=== PATIENT | female | born 1990 | race Caucasian/White ===

== ENCOUNTER → 2017-11-29 07:33 | Observation (INO) ==
[2017-11-29 04:37] LABS: Basophils % 0.3 %; Eosinophils # 0.2 K/mcL (0.0-0.6); Eosinophils % 1.4 %; Hematocrit 30.3 % (35.3-44.9); Hemoglobin 9.8 g/dL (11.5-15.4); Immature Granulocytes % 1.5 % (0-4); Lymphocytes # 2.1 K/mcL (0.6-4.6); Lymphocytes % 19.5 %; Mean Corpuscular HGB Conc 32.3 g/dL (31.6-35.5); Mean Corpuscular Hemoglobin 25.1 pg (28.0-33.3); Mean Corpuscular Volume 77.7 fL (83.0-100.0); Mean Platelet Volume 10.6 fL (9.4-12.4); Monocytes # 0.6 K/mcL (0.0-1.3); Monocytes % 5.4 %; Neutrophils # 7.9 K/mcL (1.6-8.9); Platelet Count 187 K/mcL (140-400); Red Cell Distribution Width 13.4 % (11.5-14.5); Segmented Neutrophils % 71.9 %
[2017-11-29 05:12] LABS: Alanine Aminotransferase 8 Units/L (7-52); Aspartate Amino Transferase 14 Units/L (13-39); BUN/Creatinine Ratio 20 (6-26); Blood Urea Nitrogen 8 mg/dL (6-20); Lactate Dehydrogenase 142 Units/L (140-271); eGFR For African Americans > 60 (> 60); eGFR For Non-African Americans > 60 (> 60)
--- NOTE | 2017-11-29 05:25 | OB/GYN History & Physical ---
Date of Encounter: 11/29/17 Time of Encounter: 05:10 Assessment and Plan (1) 38 weeks gestation of Current visit: Yes Status: Acute (2) Antepartum bleeding, third trimester Current visit: Yes Status: Acute Slight brown spotting noted on RN exam, No change on serial cervical exams PIH labs negative and normotensive at this time Discharge home with when to call provider or return to triage precautions. Keep OB appointment today with provider. (3) Lower extremity edema Current visit: Yes Status: Acute (4) Gestational diabetes Current visit: Yes Status: Acute Qualifiers: Gestational diabetes mellitus control: diet-controlled Trimester: third trimester Qualified Code(s): O24.410 - Gestational diabetes mellitus in , diet controlled History of Present Illness Chief complaint: Antepartum vaginal bleed HPI: Ms. Baires is a 27 year old female G2 A1 P0 at 38 3/7 weeks intrauterine gestation presents with painless vaginal bleeding for the last 11 hours and complaints of bilateral lower extremity swelling. Past medical history of endometriosis and anemia. She admits to cramping, contractions, movements. Denies ROM. She reports that she was exerting herself prior to bleed. Admits to history of gestational diabetes controlled with diet for current , but no previous episodes of hypertension or seizures. She also reports low lying placenta confirmed with 14 week ultrasound during this with confirmed resolution by ultrasound last Saturday. The patient also has received 2 doses of Rhogam for vaginal bleed in July 2017, and previous fall in September 2017. Previous history of spontaneous on February at reported 4 week gestation. Reports that she was 3cm dilated last Saturday, but currently 1cm. She is Rh- negative and experience a fall in September with trauma, and received Rhogam. She denies recent illness, floaters, headaches, aura, fever, chills, vomiting, diarrhea, chest pain, shortness of breath, dysuria, hematuria, abdominal pain, vaginal pain. She admits to occasional nausea. Past Med Surg Social Fam HX - Past Medical History Medical history: migraine, other Psychiatric history: anxiety, depression - Past Surgical History Surgical History: appendectomy, other - Social History Smoking Status: Former smoker Smokeless Tobacco Status: No Alcohol use: none Drug use: none - Family History Father Living Status: Still Living Hx Family Cardiac Disorders: Yes (pace maker, defib) Obstetrical History - Pregnancies : 2 Para: 0 Term: 0 : 0 Ab's: 1 Livin Medications and Allergies 3 Allergy/AdvReac Type Severity Reaction Status Date / Time adhesive Allergy Blister Verified 08/13/16 23:22 ranitidine [From Zantac] Allergy See Verified 11/29/17 05:04 Comments Review of System OB - Constitutional Constitutional ROS IM: as per HPI, no chills, no fever(s), no headache(s) - Cardiovascular Cardiovascular: as per HPI - Respiratory Respiratory: as per HPI - Gastrointestinal Gastrointestinal: as per HPI - Genitourinary Genitourinary: as per HPI Exam - Constitutional Constitutional: well developed, well nourished, no acute distress - HEENT HEENT: Mucus Membranes Moist - Neck Neck exam: normal inspection, supple, trachea midline - Lungs Respiratory exam: CTAB - Cardiovascular Cardiovascular exam: +S1, +S2, tachycardia - Abdomen Abdomen: Present: bowel sounds normal. Absent: guarding noted - Extremities Extremities exam: pedal edema, warm, radial pulses palpable and symmetrical Deep Tendon Reflex Grade: 2+ Normal - Uterus Uterus exam: Present: normal size, normal contour - Comments Comments: +2 DTR -clonus Results Result Diagrams: 11/29/17 04:22 11/29/17 04:22 Abnormal lab results Hgb 9.8 g/dL (11.5-15.4) L 11/29/17 04:22 Hct 30.3 % (35.3-44.9) L 11/29/17 04:22 MCV 77.7 fL (83.0-100.0) L 11/29/17 04:22 MCH 25.1 pg (28.0-33.3) L 11/29/17 04:22 Creatinine 0.40 mg/dL (0.60-1.20) L 11/29/17 04:22 All other labs normal. - VTE Reasons for not Prescribing Prophylaxis: Treatment not Indicated - Low risk for VTE
[2017-11-29 06:25] LABS: Amphetamine Screen,Urine Negative ng/mL (Cutoff=1000); Barbiturate Screen,Urine Negative ng/mL (Cutoff=200); Benzodiazepines Screen,Urine Negative ng/mL (Cutoff=200); Cannabinoid Screen,Urine Negative ng/mL (Cutoff = 50); Cocaine Screen,Urine Negative ng/mL (Cutoff= 300); Opiate Screen,Urine Negative ng/mL (Cutoff=300); Phencyclidine Screen,Urine Negative ng/mL (Cutoff=25)
[2017-11-29 06:38] LABS: Protein/Creatinine Ratio,Urine 0.23 mg/mg (0.00-0.20)
== END | disposition home or self-care (01) ==
LOC: 1NENULAB
PROVIDERS: ADMIT Obstetrics & Gynecology; ATTEND Obstetrics & Gynecology